=== PATIENT | male | born 1950 ===

== ENCOUNTER → 2022-10-10 | Outpatient (CLI) | payer OTHER ==
[~2022-10-10] VITALS: Ht 177.8 cm; Wt 69.5 kg
[2022-10-10 08:27] VITALS: BP 155/97
== END | disposition home or self-care (01) ==
LOC: SRCNTR 08:26
PROVIDERS: ATTEND Internal Medicine
DX: Z09 Encounter for follow-up examination after completed treatment for conditions other than malignant neoplasm (principal); J44.9 Chronic obstructive pulmonary disease, unspecified; M19.90 Unspecified osteoarthritis, unspecified site; B19.10 Unspecified viral hepatitis B without hepatic coma
CPT/HCPCS: G0463; Z7500